=== PATIENT | male | born 1965 | race African-American/Black ===

== ENCOUNTER 2021-03-10 07:30 | Inpatient (IN) | payer BC ==
[2021-03-10 08:26] LABS: ALT (SGPT) 46 U/L (8-55); AST (SGOT) 41 U/L (5-34); Albumin 3.6 g/dL (3.5-5.0); Alkaline Phosphatase 76 U/L (40-110); Anion Gap 17 mmol/L (10-20); BUN (Urea Nitrogen) 14 mg/dL (8.4-25.7); Bilirubin, Total 0.6 mg/dL (0.2-1.2); CRP (Inflammatory) 8.91 mg/dL (= or < 0.5); Calc. Creatinine Clearance 0 mL/min (70-130); Calcium 8.8 mg/dL (7.8-10.44); Carbon Dioxide 23 mmol/L (22-29); Chloride 98 mmol/L (98-107); Glucose 138 mg/dL (70-105); Protein, Total 8.6 g/dL (6.0-8.3); Sodium 134 mmol/L (136-145)
[2021-03-10 08:27] LABS: #Lymphocytes 1.1 thou/uL (1.20-3.40); #Monocytes 0.5 thou/uL (0.11-0.59); %Basophils 0.7 % (0.0-1.0); %Lymphocytes 23.1 % (21.0-51.0); %Monocytes 11.5 % (0.0-10.0); %Neutrophils 64.6 % (42.0-75.0); Hemoglobin 15.2 g/dL (14.0-18.0); Mean Corpuscular HGB CONC 33.1 g/dL (32.0-36.0); Mean Corpuscular Hemoglobin 28.9 pg (27.0-31.0); Mean Corpuscular Volume 87.4 fL (78.0-98.0); Mean Platelet Volume 7.9 fL (7.4-10.4); Platelet Count 222 thou/uL (130-400); Red Blood Cell (RBC) Count 5.25 mill/uL (4.70-6.10); White Blood Cell (WBC) Count 4.7 thou/uL (4.8-10.8)
[2021-03-10] MEDS ORDERED: Dexamethasone 10 MG/ML VIAL ONE (08:49)
[2021-03-10] MEDS ORDERED: Acetaminophen 500 MG TAB ONE (08:50)
[2021-03-10] MEDS ORDERED: Aspirin 325 MG TAB ONE (08:50)
[2021-03-10] MEDS ORDERED: Magnesium 2 GM/50 ML BAG (IN WATER) ONE (08:50)
[2021-03-10] MEDS ORDERED: Albuterol 200 PUFF (6.7GM INHALER) INH SCH (09:00)
[2021-03-10] MEDS ORDERED: Enoxaparin Sodium 40 MG/0.4 ML SYRINGE ONE (11:25)
[2021-03-10] MEDS ORDERED: REMDESIVIR 200 MG in Sodium Chloride 0.9% 250 ML 250 ML IV SCH (13:00)
[2021-03-10] MEDS: metFORMIN 500 MG TAB PO SCH (17:51)
[2021-03-11] MEDS: metFORMIN 500 MG TAB PO SCH ×2 (08:28→18:22)
[2021-03-11] MEDS: Dexamethasone 4 MG TAB PO SCH (08:28)
[2021-03-11] MEDS: Enoxaparin Sodium 40 MG/0.4 ML SYRINGE SC SCH (08:28)
[2021-03-11] MEDS: REMDESIVIR 100 MG in Sodium Chloride 0.9% 250 ML 250 ML IV SCH (12:20)
[2021-03-11] MEDS ORDERED: Ondansetron ODT 4 MG TAB PO PRN (14:29)
[2021-03-11] MEDS ORDERED: Iopamidol 370 76% 100 ML VIAL IV ONE (18:41)
[2021-03-12] MEDS: Albuterol 200 PUFF (6.7GM INHALER) INH PRN ×2 (09:04→22:00)
[2021-03-12] MEDS: metFORMIN 500 MG TAB PO SCH ×2 (09:05→17:20)
[2021-03-12] MEDS: Dexamethasone 4 MG TAB PO SCH (09:05)
[2021-03-12] MEDS: Enoxaparin Sodium 40 MG/0.4 ML SYRINGE SC SCH (09:05)
[2021-03-12] MEDS: REMDESIVIR 100 MG in Sodium Chloride 0.9% 250 ML 250 ML IV SCH (14:09)
[2021-03-12] MEDS ORDERED: FLU VACC QS2021-22(6MOS UP)/PF 60 MCG/0.5 ML SYRINGE IM ONE (15:45)
[2021-03-13] MEDS: Albuterol 200 PUFF (6.7GM INHALER) INH PRN ×4 (02:08→21:48)
[2021-03-13 05:43] LABS: Calc. Creatinine Clearance 250 mL/min (70-130)
[2021-03-13 05:45] LABS: Hemoglobin 13.9 g/dL (14.0-18.0); Platelet Count 446 thou/uL (130-400)
[2021-03-13] MEDS: Dexamethasone 4 MG TAB PO SCH (08:45)
[2021-03-13] MEDS: metFORMIN 500 MG TAB PO SCH ×2 (08:45→18:18)
[2021-03-13] MEDS: Enoxaparin Sodium 40 MG/0.4 ML SYRINGE SC SCH (08:45)
[2021-03-13] MEDS: REMDESIVIR 100 MG in Sodium Chloride 0.9% 250 ML 250 ML IV SCH (13:35)
[2021-03-14] MEDS: Albuterol 200 PUFF (6.7GM INHALER) INH PRN ×2 (02:02→06:10)
[2021-03-14 07:09] VITALS: BP 113/75; TEMP 97.6
[2021-03-14] MEDS: metFORMIN 500 MG TAB PO SCH (08:53)
[2021-03-14] MEDS: Dexamethasone 4 MG TAB PO SCH (08:53)
[2021-03-14] MEDS: Enoxaparin Sodium 40 MG/0.4 ML SYRINGE SC SCH (08:54)
[2021-03-14] MEDS ORDERED: guaiFENesin/DM ER PO SCH (09:00)
[2021-03-14] MEDS: REMDESIVIR 100 MG in Sodium Chloride 0.9% 250 ML 250 ML IV SCH (12:56)
== END 2021-03-14 15:14 | disposition home or self-care (01) | DRG 177 ==
LOC: BURERS 07:30 → BURMED 10:14
PROVIDERS: ADMIT Family Medicine; ATTEND Family Medicine
PROC: 8E0ZXY6 Isolation (ICD-10-PCS; 2021-03-10)
PROC: XW033E5 Introduction of Remdesivir Anti-infective into Peripheral Vein, Percutaneous Approach, New Technology Group 5 (ICD-10-PCS; principal; 2021-03-11)
DX: U07.1 COVID-19 (principal); J12.82 Pneumonia due to coronavirus disease 2019; E11.9 Type 2 diabetes mellitus without complications; R09.02 Hypoxemia
CPT/HCPCS: 36415; 71045; 71275; 80053; 82565; 83605; 83880; 84484; 85014; 85018; 85025; 85049; 85379; 86140; 87040; 93005; 96365; 96366; 96372; 96375; J1100; J1650; J3475; J7050; J8540; Q0162; Q9967